=== PATIENT | female | born 1955 | race Caucasian/White ===

== ENCOUNTER 2021-11-06 14:30 | Outpatient (RCR) | payer MEDICARE, SELFPAY ==
[2021-08-20 10:57] VITALS: BMI 22.7
[2021-08-20 11:02] VITALS: BMI 22.7
[2021-10-17 11:08] VITALS: BMI 22.5
[2021-10-17 11:10] VITALS: BMI 22.5
== END 2021-11-11 12:26 | disposition home or self-care (01) ==
LOC: ANHDMC 14:30
PROVIDERS: PCP Family Medicine; Visit Provider Internal Medicine Endocrinology, Diabetes & Metabolism
DX: E11.65 Type 2 diabetes mellitus with hyperglycemia (principal); Z79.4 Long term (current) use of insulin; Z71.89 Other specified counseling; Z71.3 Dietary counseling and surveillance
CPT/HCPCS: 97802; 97803; G0108; G0109

== ENCOUNTER 2022-01-17 13:23 | Emergency (ER) | payer MEDICARE, SELFPAY ==
--- NOTE | ~2022-01-17 | CT_ITS ---
EXAMINATION: CT brain wo con DATE: 01/17/2022 14:06 INDICATION: Left-sided facial numbness and facial droop TECHNIQUE: Computed tomography (CT) of the head was performed without intravenous contrast. Sagittal and coronal reconstructions were performed. The mA was adjusted according to patient size. Iterative reconstruction technique was employed. The dose-length product was 605.33 mGy-cm. COMPARISON: None FINDINGS: No acute intracranial hemorrhage, acute infarction or abnormal extra axial fluid collection. Symmetri c prominence of the sulci consistent with mild age-appropriate diffuse cerebral volume loss. Ventric les are normal and symmetric. No mass/mass effect. The orbits, paranasal sinuses and mastoid air cell s are normal. IMPRESSION: 1. No acute intracranial process. Reviewed, dictated and finalized at location B.
[2022-01-17 13:28] VITALS: BP 150/77; PULSE 90; RESP 18; TEMP 36.3; O2SAT 98
--- NOTE | 2022-01-17 14:02 | PC.NURSE ---
pt. to ct
--- NOTE | 2022-01-17 14:31 | PC.NURSE ---
blood glucose was 75 at 1430
[2022-01-17 14:33] LABS: Glucose Point of Care 75 mg/dl (65-105)
--- NOTE | 2022-01-17 14:33 | ED.NEUROSD ---
HPI - Neuro Symptoms/Deficit General Chief Complaint: Neuro Symptoms/Deficit Stated Complaint: facial numbness Time Seen by Provider: 01/17/22 13:42 Source: RN notes reviewed History of Present Illness HPI Narrative: Patient presents emerged department from home for left-sided facial droop. Patient states symptoms began approximately 11 PM last night. States that she has been having difficulty closing her left eye and this morning she is trying to drink she was having problems with sucking with a straw she cannot fully close left side of her mouth. States she has noticed some pain in her left ear she denies any numbness or weakness of the extremities she denies any vision changes states she has a mild left-sided headache she states she has had no rash over her face that she is aware of she denies any fevers or chills, chest pain shortness of breath abdominal pain nausea vomiting or any other symptoms Related Data Home Medications Medication Instructions Recorded Confirmed amlodipine 5 mg tablet 5 mg PO DAILY 09/04/19 10/10/21 Allergies Allergy/AdvReac Type Severity Reaction Status Date / Time No Known Allergies Allergy Unknown Verified 10/10/21 11:49 Review of Systems Review of Systems: Gen.: Denies fevers or chills Eyes: Denies eye pain or visual change ENT: Denies congestion Respiratory: Denies shortness of breath or cough CV: Denies chest pain or palpitations GI: Denies abdominal pain nausea, emesis or diarrhea Musculoskeletal: Denies back pain or muscle pain Neuro: See HPI Skin: Denies rash Except as documented, all other systems reviewed and negative [facility] Past Medical History Medical History Essential hypertension Mixed hyperlipidemia Type 1 diabetes mellitus with hyperglycemia Family History Family History Father Hypertension Family history of cardiovascular disease Cerebrovascular accident Grandparent Hypertension Family history of malignant neoplasm of breast in first degree relative Sibling Hypertension Family history of malignant neoplasm of breast in first degree relative Mother Family history of malignant neoplasm of breast in first degree relative Social History Social History Smoking status: Never smoker Second hand tobacco smoke exposure: No Alcohol intake: never Substance use: never Substance use type: does not use Spiritual care concerns: No Exam Narrative: APPEARANCE: No acute distress, nontoxic, resting in bed EYES: EOMI HEENT: Normocephalic, atraumatic, TMs clear bilaterally nares patent no rash seen on face RESPIRATORY: No respiratory distress Clear to auscultation bilaterally with no rhonchi wheezing or rales. CARDIOVASCULAR: Regular rate and rhythm without murmurs rubs or gallops. ABDOMINAL: Soft, nontender, nondistended, no rebound or guarding MUSCULOSKELETAl: Moves all extremities. No clubbing, cyanosis or edema. NEURO: Awake and alert x 4. Following commands, speech normal, left-sided facial droop unable to fully close left eye decreased wrinkling on left forehead compared to right, muscle strength 5 out of 5 in the bilateral upper and lower extremities, no pronator drift SKIN:: Warm, dry. No rashes lesions or abrasions PSYCHIATRIC: Normal affect/mood, Course Course Emergency Course: Discussed with patient results of workup and diagnosis. Discussed need for follow-up with primary care, proper use of medication, and reasons to return to the emergency department. 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
[2022-01-17] MEDS: valACYclovir HCL 500 MG TABLET 1000 MG PO (15:04)
[2022-01-17] MEDS: predniSONE 20 MG TABLET 60 MG PO (15:04)
== END 2022-01-17 15:00 | disposition home or self-care (01) ==
LOC: ANHED 14:46
PROVIDERS: Emergency Provider Emergency Medicine; PCP Family Medicine
DX: G51.0 Bell's palsy (principal); I10 Essential (primary) hypertension; E78.2 Mixed hyperlipidemia; E10.9 Type 1 diabetes mellitus without complications; Z79.4 Long term (current) use of insulin
CPT/HCPCS: 70450; 82948; 99284; A9270; J7512

== ENCOUNTER → 2022-12-05 11:36 | Outpatient (CLI) | payer MEDICARE, SELFPAY ==
--- NOTE | ~2022-12-05 | XR_ITS ---
Right foot Technique: AP, oblique, and lateral views were obtained. Clinical History: Injury Findings: No acute fracture or dislocation is seen. Osseous alignment is anatomic. There is mild dege nerative change at the first MTP joint. Soft tissues are unremarkable. Impression: No fracture or dislocation. Mild degenerative change at the first MTP joint. Reviewed, dictated and finalized at [facility]. Impression: No fracture or dislocation. Mild degenerative change at the first MTP joint.
== END ==
PROVIDERS: PCP Family Medicine; Visit Provider Physician Assistant
DX: S99.921A Unspecified injury of right foot, initial encounter (principal); M19.071 Primary osteoarthritis, right ankle and foot; X58.XXXA Exposure to other specified factors, initial encounter
CPT/HCPCS: 73630

== ENCOUNTER 2023-02-05 12:23 | Outpatient (RCR) | payer MEDICARE, SELFPAY ==
--- NOTE | 2023-02-05 13:33 | PTOPEVDC ---
Assessment and note entered by Natalie Eastman, PT Thank you for referring Humaira Thomas to [facility].? An evaluation has been completed. No further treatment is needed. Evaluation Information Assessment Status Evaluation Diagnosis bells palsy Onset December 2021 Subjective Information Patient presents to physical therapy due to bells palsy. Patient reports difficulty with chewing because muscles are not working correctly and crookedness with whistling and smiling. Patient reports difficulty with blinking. Patient reports in the morning her face looks crooked with her L face being pulled upwards. Patient denies pain but does report a nagging feeling. Patient goal is to get her normal face back Reported Pain Level Pain Score 0: Self Report Assessment PT Clinical Summary Patient is 67 year old female referred due to tellez palsy which occurred 1 year ago. Patient primary complaint is asymmetry of smile , asymmetry of L eye, difficulty whistling and chewing food. Patient diagnosis was 1 year ago, educated patient regarding questionable recovery of muscle strength at this time. Spoke to FUNDING SPECIALIST who could treat lip/oral weakness and asymmetry at this time . Will DC from PT with HEP prescribed due to patient having questionable likelihood of further muscle recovery and current goals being more appropriate for FUNDING SPECIALIST. Plan of Care PT Services Indicated No
== END 2023-02-06 11:29 | disposition home or self-care (01) ==
LOC: ANHPT 12:23
PROVIDERS: PCP Family Medicine; Visit Provider Physician Assistant
DX: G51.0 Bell's palsy (principal)
CPT/HCPCS: 97110; 97162

== ENCOUNTER 2023-03-05 10:33 | Outpatient (RCR) | payer MEDICARE, SELFPAY ==
--- NOTE | 2023-03-05 12:50 | STOPEVDC ---
Assessment and note entered by Ofelia Ordaz, CRADLE SLIDE MAKER Thank you for referring Humaira Thomas to [facility].? An evaluation has been completed. No further treatment is needed. Evaluation Information Assessment Status Evaluation Diagnosis Dysarthria Onset 01/15 Subjective Information The patient reported that she had been whistling and all of a sudden, I couldn't whistle. She reported she did not see any difference in the mirror and went to bed. When she was eating breakfast the next morning, she could not form him lips around the spoon. She wondered if she were having a stroke so she went to [facility], ED. 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 She stated that eating was difficult at that time and speech was slightly impaired. Patient states she is now a thousand times better than I was, but she reports she is still having issues (see Evaluation Report). Reported Pain Level Pain Score 0: Self Report Assessment ST Clinical Summary DYSARTHRIA EVALUATION Today the patient reports that when she is speaking, she feels that her face becomes crooked. She states that she feels that the left side of her face draws to the left. She reports that when she is chewing, food will still hang up in her left cheek; she is able to clear with her tongue however she feels that her tongue does not move as efficiently as it used to. When she is chewing or when she is speaking, her left eye closes which can impede her vision when reading (while eating) or driving while eating. Patient also reports she feels more comfortable drinking from a straw than drinking directly from a cup; she used to drool/ dribble from around the cup on the left side but does not anymore. Nonetheless, she still feels her lips are not holding the cup firmly while drinking. She states that she feels her speech sound precision has improved although the lips and tongue, she feels, do not work like they used to prior to Gentile's Palsy onset. The patient was presented with a Dysarthria Evaluation to assess labial/lingual movement and function and speech intelligibility. Patient presented with mild dysarthria characterized as
--- NOTE | 2023-03-05 12:55 | STOPEVDC ---
Assessment and note entered by Ofelia Ordaz, CHILDCARE ADMINISTRATOR Thank you for referring Humaira Thomas to [facility] [place].? An evaluation has been completed. No further treatment is needed. Evaluation Information Assessment Status Evaluation Diagnosis Dysarthria Onset 01/15 Subjective Information The patient reported that she had been whistling and all of a sudden, I couldn't whistle. She reported she did not see any difference in the mirror and went to bed. When she was eating breakfast the next morning, she realized she could not form her lips around the spoon. She wondered if she were having a stroke so she went to [facility], ED. 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 She stated that eating was difficult at that time and speech was slightly impaired. Patient states she is now a thousand times better than I was, but she reports she is still having issues ( see Clinical Summary). Reported Pain Level Pain Score 0: Self Report Assessment ST Clinical Summary DYSARTHRIA EVALUATION Today the patient reports that when she is speaking, she feels that her face becomes crooked. She states that she feels that the left side of her face draws to the left and that when she is chewing, food will still hang up in her left cheek. Patient states she is able to clear with her tongue however she feels that her tongue does not move as efficiently as it used to. When she is chewing or when she is speaking, her left eye closes which can impede her vision when reading ( while eating) or driving while eating. Patient also reports she feels more comfortable drinking from a straw than drinking directly from a cup; she used to drool/dribble from around the cup on the left side but does not anymore. Nonetheless, she still feels her lips are not holding the cup firmly while drinking. She states that she feels her speech sound precision has improved although the lips and tongue, she feels, do not work like they used to prior to Gentile's Palsy onset. The patient was presented with a Dysarthria Evaluation to assess labial/lingual movement and function and speech intelligibility. Patient presented with mild dysarthria characterized as
== END 2023-03-05 13:21 | disposition home or self-care (01) ==
LOC: ANHST 10:33
PROVIDERS: PCP Family Medicine; Visit Provider Physician Assistant
DX: R47.1 Dysarthria and anarthria (principal); G51.0 Bell's palsy
CPT/HCPCS: 92522

== ENCOUNTER 2023-04-24 01:17 | Day surgery (SDC) | payer MEDICARE, SELFPAY ==
[2023-04-15 12:40] VITALS: BMI 23.4
[2023-04-24 11:52] VITALS: BP 145/82; PULSE 75; RESP 18; TEMP 36.6; O2SAT 98; BMI 24.1
--- NOTE | 2023-04-24 12:13 | WPDANESEPPF ---
Anes - Initial Pre Proc Eval Procedure: Operation Date: 04/24/23 13:15 Proposed Procedures p Screening Colonoscopy - Cresencio Becker MD Date/Time: 04/24/23 12:13 Surgeon: Cresencio Becker MD Pre Op Diagnosis: neoplasm screening Patient Data Age: 67 Gender: F Height: 1.52 m Weight: 56.1 kg Last Vital Signs Temp 97.8 F 04/24/23 11:52 Pulse 75 04/24/23 11:52 Resp 18 04/24/23 11:52 BP 145/82 H 04/24/23 11:52 Pulse Ox 98 04/24/23 11:52 O2 Del Method Room Air 04/24/23 11:52 Allergies Allergy/AdvReac Type Severity Reaction Status Date / Time No Known Allergies Allergy Unknown Verified 04/24/23 12:00 Home Medications Medication Instructions Recorded Confirmed Type meclizine 25 mg tablet 25 mg PO BID PRN dizziness #60 tabs 03/12/20 04/24/23 Rx pen needle, diabetic 32 gauge x #400 ea 08/26/21 04/24/23 Rx 5/32 (BD Ultra-Fine Sarah Pen Needle) blood sugar diagnostic (Contour #300 ea 10/10/21 04/24/23 Rx Next Test Strips) flash glucose sensor (FreeStyle #6 ea 10/10/21 04/24/23 Rx Gonzales 2 Sensor kit) blood sugar diagnostic (OneTouch #300 ea 10/11/21 04/24/23 Rx Ultra Test strips) blood-glucose meter (OneTouch #1 ea 10/11/21 04/24/23 Rx Ultra2 Meter) lancets 30 gauge (OneTouch Delica #400 ea 10/16/21 04/24/23 Rx Plus Lancet) cholecalciferol (vitamin D3) 50 50 mcg PO DAILY 01/22/22 04/24/23 History mcg (2,000 unit) capsule multivit-iron 18 mg-folic acid 400 1 tablet PO DAILY 01/22/22 04/24/23 History mcg-calcium 500 mg-minerals tablet (Daily Multiple For Women) vitamins A,C,W-fxjr-trnqor 2,148 2 tablet PO BID 09/01/22 04/24/23 History mcg-113 mg-45 mg-17.4 mg tablet (PreserVision AREDS) fexofenadine 180 mg tablet 180 mg PO DAILY #30 tabs 11/07/22 04/24/23 Rx amlodipine 5 mg tablet 5 mg PO DAILY #90 tabs 11/27/22 04/24/23 Rx fluticasone propionate 50 1 spray intranasal Q12H PRN 03/09/23 04/24/23 History mcg/actuation nasal Congestion spray,suspension (Flonase Allergy Relief) insulin glargine 100 unit/mL (3 10 unit subcut QPM 03/09/23 04/24/23 History mL) subcutaneous pen (Basaglar KwikPen U-100 Insulin) insulin lispro 100 unit/mL 30 unit (0.3 mL) subcut DAILY 90 03/09/23 04/24/23 Rx subcutaneous cartridge (Humalog days #30 mL U-100 Insulin) montelukast 10 mg tablet 10 mg PO DAILY #90 tabs 04/02/23 04/24/23 Rx rosuvastatin 5 mg tablet 5 mg PO DAILY 04/15/23 04/24/23 History Patient hx anesthesia problems: none Family hx anesthesia problems: none Results Review: All pre-operative results and documents have been reviewed as part of the pre-operative evaluation. [facility] Past Medical History Medical History Gentile's palsy Essential hypertension Family history of breast cancer left breast Low vitamin D level Mixed hyperlipidemia Post-menopausal Type 1 diabetes mellitus with hyperglycemia Surgical History Surgical History H/O breast reconstruction H/O oral surgery History of hysterectomy 2007 History of tonsillectomy Hx of appendectomy 2016 Hx of mastectomy left Previous section Family History Family History Father Hypertension Family history of cardiovascular disease Cerebrovascular accident Esophageal cancer Grandparent Hypertension Family history of malignant neoplasm of breast in first degree relative Sibling Hypertension Family history of malignant neoplasm of breast in first degree relative Mother Family history of malignant neoplasm of breast in first degree relative Sibling Diabetes mellitus Social History Social History Smoking status: Never smoker Second hand tobacco smoke exposure: No Al
[2023-04-24] MEDS: LACTATED RINGERS 1,000 ML 150 ML IV CONT (12:22)
--- NOTE | 2023-04-24 12:45 | PM.HPGS ---
History of Present Illness History of Present Illness Consent: Risks, benefits, and alternatives have been discussed and questions answered. Patient agrees to proceed with procedure. Chief complaint: neoplasm screening Narrative: Humaira Thomas is a 67 year old female referred for colon cancer screening. She has a history of colon polyps. Review of Systems Review of Systems: All systems reviewed & are unremarkable except as noted in HPI and below PMFSH Past Medical History Medical History Gentile's palsy Essential hypertension Family history of breast cancer left breast Low vitamin D level Mixed hyperlipidemia Post-menopausal Type 1 diabetes mellitus with hyperglycemia Surgical History Surgical History H/O breast reconstruction H/O oral surgery History of hysterectomy 2007 History of tonsillectomy Hx of appendectomy 2016 Hx of mastectomy left Previous section Family History Family History Father Hypertension Family history of cardiovascular disease Cerebrovascular accident Esophageal cancer Grandparent Hypertension Family history of malignant neoplasm of breast in first degree relative Sibling Hypertension Family history of malignant neoplasm of breast in first degree relative Mother Family history of malignant neoplasm of breast in first degree relative Sibling Diabetes mellitus Social History Social History Smoking status: Never smoker Second hand tobacco smoke exposure: No Alcohol intake: never Substance use: never Substance use type: does not use Lack of Transportation: No Lack of Food: Never True Current Housing: I Have Housing Concerned About Future Housing: No Difficulty Paying Gas/Electric Bills: No Difficulty Paying for Meds: YES Currently Unemployed: No Education: High School Diploma/GED Difficulty w/ Childcare or Family Care: No Living arrangements: alone Spiritual care concerns: No Meds Home Medications and Allergies Home Medications Medication Instructions Recorded Confirmed Type meclizine 25 mg tablet 25 mg PO BID PRN dizziness #60 tabs 03/12/20 04/24/23 Rx pen needle, diabetic 32 gauge x #400 ea 08/26/21 04/24/23 Rx 5/32 (BD Ultra-Fine Sarah Pen Needle) blood sugar diagnostic (Contour #300 ea 10/10/21 04/24/23 Rx Next Test Strips) flash glucose sensor (FreeStyle #6 ea 10/10/21 04/24/23 Rx Gonzales 2 Sensor kit) blood sugar diagnostic (OneTouch #300 ea 10/11/21 04/24/23 Rx Ultra Test strips) blood-glucose meter (OneTouch #1 ea 10/11/21 04/24/23 Rx Ultra2 Meter) lancets 30 gauge (OneTouch Delica #400 ea 10/16/21 04/24/23 Rx Plus Lancet) cholecalciferol (vitamin D3) 50 50 mcg PO DAILY 01/22/22 04/24/23 History mcg (2,000 unit) capsule multivit-iron 18 mg-folic acid 400 1 tablet PO DAILY 01/22/22 04/24/23 History mcg-calcium 500 mg-minerals tablet (Daily Multiple For Women) vitamins A,C,M-jpzq-krdazj 2,148 2 tablet PO BID 09/01/22 04/24/23 History mcg-113 mg-45 mg-17.4 mg tablet (PreserVision AREDS) fexofenadine 180 mg tablet 180 mg PO DAILY #30 tabs 11/07/22 04/24/23 Rx amlodipine 5 mg tablet 5 mg PO DAILY #90 tabs 11/27/22 04/24/23 Rx fluticasone propionate 50 1 spray intranasal Q12H PRN 03/09/23 04/24/23 History mcg/actuation nasal Congestion spray,suspension (Flonase Allergy Relief) insulin glargine 100 unit/mL (3 10 unit subcut QPM 03/09/23 04/24/23 History mL) subcutaneous pen (Basaglar GracielaPen U-100 Insulin) insulin lispro 100 unit/mL 30 unit (0.3 mL) subcut DAILY 90 03/09/23 04/24/23 Rx subcutaneous cartridge (Humalog days #30 mL U-100 Insulin) montelukast 10 mg tablet 10 mg PO DAILY #90 tabs 04/02/2304/24
[2023-04-24 13:10] VITALS: BP 126/73; PULSE 80; RESP 17; O2SAT 99
[2023-04-24 13:20] VITALS: BP 127/70; PULSE 77; RESP 20; O2SAT 99
[2023-04-24 13:30] VITALS: BP 135/77; PULSE 70; RESP 17; O2SAT 99
--- NOTE | 2023-04-24 13:42 | SUR.PHASEII ---
Patient used Dexcom to check blood sugar before leaving. Blood sugar was 135.
== END 2023-04-24 13:42 | disposition home or self-care (01) ==
PROVIDERS: PCP Family Medicine; Visit Provider Internal Medicine Gastroenterology
PROC: 0DJD8ZZ Inspection of Lower Intestinal Tract, Via Natural or Artificial Opening Endoscopic (ICD-10-PCS; CPT 45378; principal; 2023-04-24 13:15)
DX: Z12.11 Encounter for screening for malignant neoplasm of colon (principal); Z86.010 Personal history of colon polyps; I10 Essential (primary) hypertension; E10.9 Type 1 diabetes mellitus without complications; E55.9 Vitamin D deficiency, unspecified; E78.2 Mixed hyperlipidemia; Z80.3 Family history of malignant neoplasm of breast; Z82.49 Family history of ischemic heart disease and other diseases of the circulatory system; Z79.4 Long term (current) use of insulin
CPT/HCPCS: G0105; J2704; J7120

== ENCOUNTER 2023-07-17 11:19 | Outpatient (CLI) | payer MEDICARE, SELFPAY ==
[2023-07-17 12:19] LABS: Influenza A QL RT-PCR Negative (Negative); Influenza B QL RT-PCR Negative (Negative); RSV RNA, RT-PCR Negative (Negative); SARS-CoV-2 RNA PCR Negative (Negative)
== END 2023-07-17 11:20 | disposition home or self-care (01) ==
LOC: ANHLAB 11:21
PROVIDERS: PCP Family Medicine; Visit Provider Family Medicine
DX: J06.9 Acute upper respiratory infection, unspecified (principal); Z20.822 Contact with and (suspected) exposure to COVID-19
CPT/HCPCS: 87637

== ENCOUNTER 2023-07-31 11:50 | Outpatient (CLI) | payer MEDICARE, SELFPAY ==
--- NOTE | ~2023-07-31 | XR_ITS ---
Clinical Indication: Cough PA and lateral views of the chest: Comparison: 11/14/2015 Findings: The lungs are clear, without evidence of focal consolidation or pleural effusion. Cardiome diastinal silhouette is within normal limits. Bones and soft tissues are unremarkable. Impression: Normal chest. Reviewed, dictated and finalized at [facility]. S N NAVIGATION OPERATOR Impression: Normal chest.
== END 2023-07-31 11:51 | disposition home or self-care (01) ==
LOC: ANHIMG 11:53
PROVIDERS: PCP Family Medicine; Visit Provider Physician Assistant
DX: R05.9 Cough, unspecified (principal)
CPT/HCPCS: 71046

== ENCOUNTER 2023-10-05 16:31 | Outpatient (CLI) | payer MEDICARE, SELFPAY ==
--- NOTE | ~2023-10-05 | XR_ITS ---
EXAM: XR wrist LT 2V, XR wrist RT 2V DATE: 10/05/2023 16:51 HISTORY: M25.539 - Pain in unspecified wrist . COMPARISON: X-ray left hand 05/15/2009. FINDINGS: Normal mineralization. No fracture or dislocation. No lytic or blastic lesion. Bilateral u lnar negative variance. Scattered bilateral degenerative changes, most pronounced in the bilateral tr iscaphe joints and the left trapeziometacarpal and radiocarpal articulations. Subchondral cysts noted in multiple carpal bones. No erosion or periosteal change. Soft tissues within normal limits. 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 Reviewed, dictated and finalized at location K. 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
== END 2023-10-05 16:32 | disposition home or self-care (01) ==
PROVIDERS: PCP Family Medicine; Visit Provider Physician Assistant
DX: M19.032 Primary osteoarthritis, left wrist (principal); M19.031 Primary osteoarthritis, right wrist
CPT/HCPCS: 73100

== ENCOUNTER 2024-07-28 14:59 | Outpatient (CLI) | payer MEDICARE, SELFPAY ==
[2024-07-28 15:35] LABS: Alanine Aminotransferase 31 U/L (6-35); Aspartate Amino Transferase 23 U/L (14-36)
== END 2024-07-28 15:00 | disposition home or self-care (01) ==
PROVIDERS: PCP Family Medicine; Visit Provider Podiatrist Foot & Ankle Surgery
DX: B35.1 Tinea unguium (principal)
CPT/HCPCS: 36415; 84450; 84460

== ENCOUNTER 2024-10-31 14:09 | Outpatient (CLI) | payer MEDICARE, SELFPAY ==
[2024-10-31 14:32] LABS: Alanine Aminotransferase 22 U/L (6-35); Aspartate Amino Transferase 27 U/L (14-36)
--- OUTSIDE RECORDS SUMMARY | 2024-10-31 16:15 | XMS_ITS | Clinical Summary ---
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 Gender Identity Not on file Sexual Orientation Not on file Plan of Treatment Health Maintenance Due Date Last Done Comments Colon Cancer Screening-Colonoscopy 1956 Depression Screening 1956 Fall Risk Assessment 1956 Hepatitis C Screening 1956 DTaP/Tdap/Td Vaccine (1 - Tdap) 1967 Hepatitis B Screening 1974 Pneumococcal vaccine 65+ (1 of 1 - PCV) 2006 Zoster Vaccine (1 of 2) 2006 Well Visit 65+ 2021 Influenza Vaccine (#1) 2024 Osteoporosis Screening-Bone Density Scan 05/07/2025 05/07/2023 Breast Cancer Screening-Mammogram 06/09/2025 06/09/2024, 05/07/2023, 04/03/2022, Additional history exists Procedures Procedure Name Priority Date/Time Associated Diagnosis Comments SCREENING MAMMOGRAM RIGHT W KIET UNILATERAL ONLY Schedule Routine, Read Routine (OP Routine) 06/09/2024 11:12 AM SLOT TAG INSERTER Screening mammogram, encounter for DEXA AXIAL SKELETON BONE DENSITY 1 OR MORE SITES Schedule Routine, Read Routine (OP Routine) 05/07/2023 12:31 PM CDT Asymptomatic menopausal state from Last 3 Months or Most Recently Relevant to Health Maintenance Results * Screening Mammogram Right W Kiet Unilateral Only (06/09/2024 11:12 AM SLOT TAG INSERTER) Anatomical Region Laterality Modality Breast Right Mammography Narrative 06/10/2024 10:28 AM SLOT TAG INSERTER Mammogram Technique: Right Breast Digital Breast Tomosynthesis, Unilateral C-view 2D Screening mammogram. Views obtained: right craniocaudal; right mediolateral oblique; right craniocaudal implant displaced; and right mediolateral oblique implant displaced. Computer Aided Detection was performed. Mammogram Findings: The present examination has been compared to prior imaging studies performed at [facility] on 03/14/2021, and at [facility] on 04/03/2022 and 05/07/2023. There are scattered areas of fibroglandular density. There is no suspicious abnormality in the right breast. Patient status post contralateral mastectomy for personal history of breast cancer. Impression: There is no mammographic evidence of malignancy. Annual screening mammography is recommended. OVERALL FINAL ASSESSMENT: BI-RADS CATEGORY 1: Negative. Procedure Note Tran Siddiqi MD - 06/10/2024 Mammogram Technique: Right Breast Digital Breast Tomosynthesis, Unilateral C-view 2DScreening mammogram. Views obtained: right craniocaudal; right mediolateral oblique; right craniocaudal implant displaced; and right mediolateral oblique implant displaced. Computer Aided Detection was performed. Mammogram Findings: The present examination has been compared to prior imaging studies performed at [facility] on 03/14/2021, and at [facility] on 04/03/2022 and 05/07/2023. There are scattered areas of fibroglandular density. There is no suspicious abnormality in the right breast. Patient status post contralateral mastectomy for personal history ofbreast cancer. Impression: There is no mammographic evidence of malignancy. Annual screening mammography is recommended. OVERALL FINAL ASSESSMENT: BI-RADS CATEGORY 1: Negative. us Self Screening Mammogram IMG MAMMO PROCEDURES Fi nal Result * Dexa Axial Skeleton Bone Density 1 or 2 Site (05/07/2023 12:31 PM CDT) Anatomical Region Laterality Modality Body N/A Digital Radiogra phy 05/07/2023 1:19 PM CDT Impressions 05/07/2023 1:19 PM CDT 1. The bone mineral density of the lumbar spine is moderately decreased. 2. The bone mineral density of the left femoral neck is mildly decreased. 3. The bone mineral density of the left total hip is mildly decreased. 4. Overall, the above findings are diagnostic of osteoporosis by WHO criteria. 5. Based on the FRAX fracture risk model, the 10-year probability for major osteoporotic fracture is 9.9% and that for hip fracture is 1.4%. This 10-year fracture risk estimate was calculated using the risk factors noted in the history above, along with the femoral neck bone density. FRAX is intended to help guide treatment decisions in men over age 50 and postmenopausal women with low bone mass (osteopenia). The National Osteoporosis Foundation (NOF) recommends that FDA-approved medical therapies be considered in postmenopausal women and men age 50 years and older with osteoporosis and those with low bone mass whose 10-year fracture probability by FRAX is >= 20% for major osteoporotic fracture or >= 3% for hip fracture. However, all treatment decisions require clinical judgment and consideration of individual patient factors, including patient preferences, comorbidities, previous drug use, risk factors not captured in the FRAX model (e.g., frailty, falls, vitamin D deficiency, increased bone turnover, interval significant decline in bone density) and possible under- or overestimation of fracture risk by FRAX. General comments regarding interpretation of bone density measurements: A) In children, premenopausal woman and males under age 50 not at increased risk for fractures only Z-scores, not T-scores are used to indicate risk. A Z-score above -2.0 is defined as within the expected range for age and Z-score at or less than -2.0 is below the expected range for age . A Z-score below the expected range for age in a patient with recent fractures and/or chronic corticosteroid treatment is consistent with a diagnosis of osteoporosis. B) In post menopausal women and males over 50, comparison of the measured bone mineral density with the average value in young normal subjects (the T-score ) has been found to be useful in assessing fracture risk. Fracture risk approximately doubles for each 1.0 standard deviation (SD) in individual's hip or spine bone mineral density is below the average value of young normal subjects. The World Health Organization (WHO) has defined T-scores of -1.0 to -2.5 as diagnostic of low bone mass (OSTEOPENIA), and T-scores of -2.5 or lower to be diagnostic of OSTEOPOROSIS, based on the site of lowest bone density. Note that there will be a change in reporting format and reference databases as patients move from the younger population (group A) to the older population (group B) The National Osteoporosis Foundation (www.nof.org) recommends adequate intake of calcium and vitamin D and regular weight-bearing exercise in all patients. They recommend pharmacologic treatment in postmenopausal women and men age 50 and older presenting with any of the followin) Osteoporosis, after appropriate evaluation to exclude secondary causes. 2) A hip or vertebral (clinical or radiographic) fracture, regardless of the bone density. 3) Low bone mass (Osteopenia) and one or more of: other prior fractures, secondary causes associated with high risk of fracture (such as glucocorticoid use or total immobilization), or computed high risk of fracture (10-yr probability of hip fracture >= 3% or a 10-yr probability of any major osteoporosis-related fracture >= 20% based on the [place].-adapted WHO algorithm), available at http://www.shef.ac.uk/FRAX). The radiology attending physician has personally reviewed this study, and had reviewed and/or edited this written report and agrees with it. Electronically signed by: DO Virginia Quinonez 05/07/2023 1:19 PM CDT BONE DENSITOMETRY OF THE SPINE AND HIP DATE OF STUDY: 05/07/2023 HISTORY: 68-year-old postmenopausal woman with history of breast carcinoma. She is being treated with calcium and vitamin D. Evaluate bone mineral density. Additional risk factors for fracture: secondary osteoporosis. FINDINGS (SPINE): The bone mineral density of L1-L4 was assessed by dual-energy x-ray absorptiometry. The average bone mineral density within this region is 0.759 gm/sq-cm. This is 0.7 standard deviations below the mean of the average bone mineral density for age- and gender-matched subjects (the Z-score). It is 2.6 standard deviations below the mean peak bone mineral density in young adults (the T-score). FINDINGS (FEMORAL NECK): The bone mineral density of the left femoral neck was assessed by dual-energy x-ray absorptiometry. The average bone mineral density within the femoral neck region is 0.656 gm/sq-cm. This is 0.1 standard deviations below the mean of the average bone mineral density for age- and gender-matched subjects (the Z-score). It is 1.7 standard deviations below the mean peak bone mineral density in young adults (the T-score). FINDINGS (TOTAL HIP): The bone mineral density of the left hip was assessed by dual-energy x-ray absorptiometry. The average bone mineral density within the total hip region is 0.791 gm/sq-cm. This is 0.1 standard deviations above the mean of the average bone mineral density for age- and gender-matched subjects (the Z-score). It is 1.2 standard deviations below the mean peak bone mineral density in young adults (the T-score). SUMMARY OF CURRENT RESULTS: Region BMD T-score Z-score AP Spine (L1-L4) 0.759 -2.6 -0.7 Femoral Neck (Left) 0.656 -1.7 -0.1 Total Hip (Left) 0.791 -1.2 0.1 Procedure Note Swingle, Jezngozi TimDO - 05/07/2023 BONE DENSITOMETRY OF THE SPINE AND HIP DATE OF STUDY: 05/07/2023 HISTORY: 68-year-old postmenopausal woman with history of breast carcinoma. She is being treated with calcium and vitamin D. Evaluate bone mineral density. Additional risk factors for fracture: secondary osteoporosis. FINDINGS (SPINE): The bone mineral density of L1-L4 was assessed by dual-energy x-ray absorptiometry. The average bone mineral density within this region is 0.759 gm/sq-cm. This is 0.7 standard deviations below the mean of the average bone mineral density for age- and gender-matched subjects (the Z-score). It is 2.6 standard deviations below the mean peak bone mineral density in young adults (the T-score). FINDINGS (FEMORAL NECK): The bone mineral density of the left femoral neck was assessed by dual-energy x-ray absorptiometry. The average bone mineral density within the femoral neck region is 0.656 gm/sq-cm. This is 0.1 standard deviations below the mean of the average bone mineral density for age- and gender-matched subjects (the Z-score). It is 1.7 standard deviations below the mean peak bone mineral density in young adults (the T-score). FINDINGS (TOTAL HIP): The bone mineral density of the left hip was assessed by dual-energy x-ray absorptiometry. The average bone mineral density within the total hip region is 0.791 gm/sq-cm. This is 0.1 standard deviations above the mean of the average bone mineral density for age- and gender-matched subjects (the Z-score). It is 1.2 standard deviations below the mean peak bone mineral density in young adults (the T-score). SUMMARY OF CURRENT RESULTS: Region BMD T-score Z-score AP Spine (L1-L4) 0.759 -2.6 -0.7 Femoral Neck (Left) 0.656 -1.7 -0.1 Total Hip (Left) 0.791 -1.2 0.1 IMPRESSION: 1. The bone mineral density of the lumbar spine is moderately decreased. 2. The bone mineral density of the left femoral neck is mildly decreased. 3. The bone mineral density of the left total hip is mildly decreased. 4. Overall, the above findings are diagnostic of osteoporosis by WHO criteria. 5. Based on the FRAX fracture risk model, the 10-year probability for major osteoporotic fracture is 9.9% and that for hip fracture is 1.4%. This 10-year fracture risk estimate was calculated using the risk factors noted in the history above, along with the femoral neck bone density. FRAX is intended to help guide treatment decisions in men over age 50 and postmenopausal women with low bone mass (osteopenia). The National Osteoporosis Foundation (NOF) recommends that FDA-approved medical therapies be considered in postmenopausal women and men age 50 years and older with osteoporosis and those with low bone mass whose 10-year fracture probability by FRAX is >= 20% for major osteoporotic fracture or >= 3% for hip fracture. However, all treatment decisions require clinical judgment and consideration of individual patient factors, including patient preferences, comorbidities, previous drug use, risk factors not captured in the FRAX model (e.g., frailty, falls, vitamin D deficiency, increased bone turnover, interval significant decline in bone density) and possible under- or overestimation of fracture risk by FRAX. General comments regarding interpretation of bone density measurements: A) In children, premenopausal woman and males under age 50 not at increased risk for fractures only Z-scores, not T-scores are used to indicate risk. A Z-score above -2.0 is defined as within the expected range for age and Z-score at or less than -2.0 is below the expected range for age . A Z-score below the expected range for age in a patient with recent fractures and/or chronic corticosteroid treatment is consistent with a diagnosis of osteoporosis. B) In post menopausal women and males over 50, comparison of the measured bone mineral density with the average value in young normal subjects (the T-score ) has been found to be useful in assessing fracture risk. Fracture risk approximately doubles for each 1.0 standard deviation (SD) in individual's hip or spine bone mineral density is below the average value of young normal subjects. The World Health Organization (WHO) has defined T-scores of -1.0 to -2.5 as diagnostic of low bone mass (OSTEOPENIA), and T-scores of -2.5 or lower to be diagnostic of OSTEOPOROSIS, based on the site of lowest bone density. Note that there will be a change in reporting format and reference databases as patients move from the younger population (group A) to the older population (group B) The National Osteoporosis Foundation (www.nof.org) recommends adequate intake of calcium and vitamin D and regular weight-bearing exercise in all patients. They recommend pharmacologic treatment in postmenopausal women and men age 50 and older presenting with any of the followin) Osteoporosis, after appropriate evaluation to exclude secondary causes. 2) A hip or vertebral (clinical or radiographic) fracture, regardless of the bone density. 3) Low bone mass (Osteopenia) and one or more of: other prior fractures, secondary causes associated with high risk of fracture (such as glucocorticoid use or total immobilization), or computed high risk of fracture (10-yr probability of hip fracture >= 3% or a 10-yr probability of any major osteoporosis-related fracture >= 20% based on the [place].-adapted WHO algorithm), available at http://www.shef.ac.uk/FRAX). The radiology attending physician has personally reviewed this study, and had reviewed and/or edited this written report and agrees with it. Electronically signed by: Glen Arcos DO Marie Merino MD IM DXA PROCEDURES Final Result from Last 3 Months or Most Recently Relevant to Health Maintenance Insurance [place] AET[place] MEDICARE GOLD Care Teams Transit Planning Manager Relationship Specialty Start Date End Date Marie Merino MD PCP - General Family Medicine 01/20/19
--- OUTSIDE RECORDS SUMMARY | 2024-10-31 16:15 | XMS_ITS | Referral Summary ---
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 Gender Identity Not on file Sexual Orientation Not on file Plan of Treatment Not on file Procedures Procedure Name Priority Date/Time Associated Diagnosis Comments SCREENING MAMMOGRAM RIGHT W KIET UNILATERAL ONLY Schedule Routine, Read Routine (OP Routine) 06/09/2024 11:12 AM MECHANIC WELDER TRUCK DRIVER Screening mammogram, encounter for DEXA AXIAL SKELETON BONE DENSITY 1 OR MORE SITES Schedule Routine, Read Routine (OP Routine) 05/07/2023 12:31 PM CDT Asymptomatic menopausal state from Last 3 Months or Most Recently Relevant to Health Maintenance Results * Screening Mammogram Right W Kiet Unilateral Only (06/09/2024 11:12 AM MECHANIC WELDER TRUCK DRIVER) Anatomical Region Laterality Modality Breast Right Mammography Narrative 06/10/2024 10:28 AM MECHANIC WELDER TRUCK DRIVER Mammogram Technique: Right Breast Digital Breast Tomosynthesis, Unilateral C-view 2D Screening mammogram. Views obtained: right craniocaudal; right mediolateral oblique; right craniocaudal implant displaced; and right mediolateral oblique implant displaced. Computer Aided Detection was performed. Mammogram Findings: The present examination has been compared to prior imaging studies performed at [facility] on 03/14/2021, and at [facility] on 04/03/2022 and 05/07/2023. There are scattered [...] compared to prior imaging studies performed at [facility] on 03/14/2021, and at [facility] on 04/03/2022 and 05/07/2023. There are scattered [...] Hip (Left) 0.791 -1.2 0.1 Procedure Note Glen Arcos DO - 05/07/2023 BONE DENSITOMETRY OF THE SPINE [...] it. Electronically signed by: Glen Arcos DO Authortiago Provider Result Type Result Stat Marie Merino MD IMG DXA PROCEDURES Final Result from Last 3 Months or Most Recently Relevant to Health Maintenance Insurance [facility] AETNA MEDICARE GOLD [facility] MEDICARE [facility] Care Teams Flowers Salesperson Relationship Specialty Start Date End Date Marie Merino MD PCP - General Family Medicine 01/20/19
--- OUTSIDE RECORDS SUMMARY | 2024-10-31 16:15 | XMS_ITS | CONTINUITY OF CARE DOCUMENT ---
Author Name jose garcia Address Unknown Organization [facility] Address [address] [place] [address] Phone [phone] Care Team Providers Care Catering Driver Name Role Phone Garfield BRADLEY, Stella Unavailable BARBARA (dnu), HELENA Unavailable [phone] BARBARA (dnu), HELENA Unavailable INSURANCE PROVIDERS Payer name Policy type / Coverage type [place] red democrat ID AETNA [facility] Other [id number]
== END 2024-10-31 14:10 | disposition home or self-care (01) ==
PROVIDERS: PCP Family Medicine; Visit Provider Podiatrist Foot & Ankle Surgery
DX: B35.1 Tinea unguium (principal)
CPT/HCPCS: 36415; 84450; 84460

== ENCOUNTER 2025-03-15 10:47 | Outpatient (CLI) | payer MEDICARE, SELFPAY ==
--- NOTE | ~2025-03-15 | XR_ITS ---
EXAMINATION: XR abdomen obstructive series DATE: 03/15/2025 11:23 INDICATION: Abdominal pain TECHNIQUE: Supine and upright views of the abdomen. FINDINGS: Comparison to 05/02/2004 The visualized lung parenchyma is normal.. There is a nonobstructive bowel gas pattern. Gas and stool are seen throughout the colon to the level of the rectum. There is no free air. There is levoscoliosis of the lumbar spine. IMPRESSION: 1. No acute abdominal abnormality. Reviewed, dictated and finalized at location A.
--- OUTSIDE RECORDS SUMMARY | 2025-03-15 11:22 | XMS_ITS | Clinical Summary ---
Author Organization [facility] Address [address] [place] [address] Care Team Providers Care Senior Front End Developer Name Role Phone Marie Merino MD Primary Care Provider [phone] Social History Tobacco Use Types Packs/Day Years Used Date Smoking Tobacco: Never Assessed Comments Unknown Sex and Gender Information Value Date Recorded Sex Assigned at Not on file Legal Sex Female 3:44 AM WHEAT WASHER Gender Identity Not on file Sexual Orientation [...] Well Visit 65+ 2021 Influenza Vaccine (#1) 2025 Osteoporosis Screening-Bone Density Scan 05/07/2025 05/07/2023 Breast Cancer Screening-Mammogram 06/09/2025 06/09/2024, 05/07/2023, 04/03/2022, Additional history exists Procedures Procedure Name Priority Date/Time Associated Diagnosis Comments SCREENING MAMMOGRAM RIGHT W KIET UNILATERAL ONLY Schedule Routine, Read Routine (OP Routine) 06/09/2024 11:12 AM WHEAT WASHER Screening mammogram, encounter for DEXA AXIAL SKELETON BONE DENSITY 1 OR MORE SITES Schedule Routine, Read Routine (OP Routine) 05/07/2023 12:31 PM CDT Asymptomatic menopausal state from Last 3 Months or Most Recently Relevant to Health Maintenance Results * Screening Mammogram Right W Kiet Unilateral Only (06/09/2024 11:12 AM WHEAT WASHER) Anatomical Region Laterality Modality Breast Right Mammography Narrative 06/10/2024 10:28 AM WHEAT WASHER Mammogram Technique: Right Breast Digital Breast Tomosynthesis, Unilateral C-view 2D Screening mammogram. Views obtained: right craniocaudal; right mediolateral oblique; right craniocaudal implant displaced; and right mediolateral oblique implant displaced. Computer Aided Detection was performed. Mammogram Findings: The present examination has been compared to prior imaging studies performed at [facility] on 03/14/2021, and at [facility] on 04/03/2022 and 05/07/2023. There are scattered [...] compared to prior imaging studies performed at [facility] on 03/14/2021, and at [facility] on 04/03/2022 and 05/07/2023. There are scattered [...] -2.0 is below the expected range for age. A Z-score below the expected range for age in a patient with recent fractures and/or chronic corticosteroid treatment is consistent with a diagnosis of osteoporosis. B) In post menopausal women and males over 50, comparison of the measured bone mineral density with the average value in young normal subjects (the T-score) has been found to be useful in [...] -2.0 is below the expected range for age. A Z-score below the expected range for age in a patient with recent fractures and/or chronic corticosteroid treatment is consistent with a diagnosis of osteoporosis. B) In post menopausal women and males over 50, comparison of the measured bone mineral density with the average value in young normal subjects (the T-score) has been found to be useful in [...] Relevant to Health Maintenance Insurance BLUE ACCESS OR BL CHOICE PRF PPO OR AETNA MEDICARE GOLD AETNA MEDICARE GOLD Care Teams Senior Front End Developer Relationship Specialty Start Date End Date Marie Merino MD PCP - General Family Medicine 01/20/19
[2025-03-15 11:43] LABS: Hematocrit 42.1 % (37.0-47.0); Hemoglobin 13.7 g/dL (12.0-15.0); Immature Granulocyte Percent A 0.2 % (0-0.5); Lymphocytes Absolute Auto 1.47 K/mm3 (0.9-3.2); Mean Corpuscular HGB Conc 32.5 g/dl (32-36); Mean Corpuscular Hemoglobin 29.2 pg (26-34); Mean Corpuscular Volume 89.8 fl (80-100); Nucleated Red Blood Cells Absolute Auto 0.000 K/mm3 (0.0-0.012); Nucleated Red Blood Cells Perc 0.0 % (0.0-0.2); Platelet Count Result 190 k/mm3 (150-375); Red Blood Count 4.69 M/mm3 (4.2-5.4); White Blood Count 4.2 K/mm3 (4.5-10.0)
[2025-03-15 12:13] LABS: Hemoglobin A1C 7.0 % (<5.7)
[2025-03-15 12:20] LABS: MALB Creatinine Ratio 10.4 mg/g (0-30)
[2025-03-15 12:31] LABS: Alanine Aminotransferase 18 U/L (6-35); Albumin Level 4.1 g/dL (3.5-5.1); Alkaline Phosphatase 75 U/L (38-126); Anion Gap 6 mmol/L (4-12); Aspartate Amino Transferase 26 U/L (14-36); Bilirubin,Total 0.6 mg/dL (0.2-1.3); Blood Urea Nitrogen 14 mg/dL (7-17); Calcium 9.5 mg/dL (8.4-10.2); Carbon Dioxide 30 mmol/L (22-30); Chloride 102 mmol/L (98-107); Cholesterol 305 mg/dL (0-200); Estimated Glomerular Filt Rate > 60; Glucose 201 mg/dL (65-110); HDL Direct 76 mg/dL; Lipase 116 U/L (23-300); Potassium 4.2 mmol/L (3.4-5.0); Sodium 138 mmol/L (137-145); Total Protein 6.9 g/dL (6.3-8.2); Triglycerides 160 mg/dL (<150)
== END 2025-03-15 10:48 | disposition home or self-care (01) ==
PROVIDERS: PCP Family Medicine; Visit Provider Family Medicine
DX: R10.9 Unspecified abdominal pain (principal); E78.2 Mixed hyperlipidemia; E10.65 Type 1 diabetes mellitus with hyperglycemia; I10 Essential (primary) hypertension; R53.83 Other fatigue; E55.9 Vitamin D deficiency, unspecified
CPT/HCPCS: 36415; 74019; 80053; 80061; 82043; 82306; 83036; 83690; 85025